=== PATIENT | female | born 1965 | race Caucasian/White ===

== ENCOUNTER → 2018-03-13 14:37 | Outpatient (CLI) | payer OTHER, SELFPAY | PROVIDERS: PCP Family Medicine; Visit Provider Nurse Practitioner Adult Health | DX: M85.852 Other specified disorders of bone density and structure, left thigh (principal); S22.39XA Fracture of one rib, unspecified side, initial encounter for closed fracture; Z78.0 Asymptomatic menopausal state; Z82.62 Family history of osteoporosis; Z87.891 Personal history of nicotine dependence | CPT/HCPCS: 77080 ==

== ENCOUNTER → 2018-08-14 13:43 | Outpatient (CLI) | payer OTHER, SELFPAY ==
--- NOTE | 2018-08-14 | DI.US.S_ITS ---
PROCEDURE: US EXTREMITY NONVASC LOWER RT INDICATIONS: RIGHT THIGH MASS LEFT FOREARM MASS TECHNIQUE: Real-time scanning was performed of the right anterior thigh., with image documentation. COMPARISON: [facility], , US EXTREMITY NONVASC UPPER LT, 08/14/2018, 14:08. FINDINGS: There are 3, mildly hyperechoic soft tissue masses corresponding to the palpable abnormalities with the largest measuring up to 2.6 cm. IMPRESSION: Soft tissue masses suspicious for lipomas; however differential would include other benign and malignant etiologies. If indicated soft tissue MRI could be performed. Dictated by: Dmitriy MOORE Interpreted: Naya Bedoya MD on 08/14/2018 at 14:39 Approved by: Naya Bedoya M.D. on 08/14/2018 at 16:08
--- NOTE | 2018-08-14 | DI.US.S_ITS ---
PROCEDURE: US EXTREMITY NONVASC UPPER LT INDICATIONS: RIGHT THIGH MASS LEFT FOREARM MASS TECHNIQUE: Real-time scanning was performed of the left lower arm anteriorly, with image documentation. COMPARISON: None. FINDINGS: Avascular, isoechoic soft tissue mass corresponding to the palpable abnormality measuring 1.0 0.4 x 1.5 cm the IMPRESSION: Probable soft tissue lipoma; however differential would also include other benign and malignant etiologies. If indicated soft tissue MRI could be performed. Dictated by: Dmitriy MOORE Interpreted: Naya Bedoya MD on 08/14/2018 at 14:42 Approved by: Naya Bedoya M.D. on 08/14/2018 at 16:09
== END ==
PROVIDERS: PCP Nurse Practitioner Adult Health; Visit Provider Nurse Practitioner Adult Health
DX: R22.41 Localized swelling, mass and lump, right lower limb (principal); R22.32 Localized swelling, mass and lump, left upper limb
CPT/HCPCS: 76882

== ENCOUNTER → 2019-03-12 07:42 | Outpatient (CLI) | payer OTHER, SELFPAY ==
--- NOTE | 2019-03-12 | DI.MG.S_ITS ---
BILATERAL DIGITAL SCREENING MAMMOGRAM 3D/2D WITH CAD WITH AUGMENTATION: 03/12/2019 CLINICAL: Routine screening. Comparison is made to exam dated: 02/21/2017 [facility]. There are scattered fibroglandular elements in both breasts. Current study was also evaluated with a Computer Aided Detection (CAD) system. Bilateral breast implants are stable. No significant masses, calcifications, or other findings are seen in either breast. There has been no significant interval change. IMPRESSION: NEGATIVE There is no mammographic evidence of malignancy. A 1 year screening mammogram is recommended. This exam was interpreted at Station ID: [id number]. NOTE: For mammograms, a report in lay terms will be sent to the patient. Approximately 15% of breast malignancies will not be visualized mammographically. In the management of a palpable breast mass, a negative mammogram must not discourage biopsy of a clinically suspicious lesion. Electronically Signed By: Vianey burroughs/enmanuel:03/12/2019 08:38:37 letter sent: Normal Exam ACR BI-RADS Category 1: Negative [id number]
== END ==
PROVIDERS: PCP Nurse Practitioner Adult Health; Visit Provider Nurse Practitioner Family
DX: Z12.31 Encounter for screening mammogram for malignant neoplasm of breast (principal)
CPT/HCPCS: 77063; 77067

== ENCOUNTER 2020-02-14 11:08 | Emergency (ER) | payer OTHER, SELFPAY ==
[2020-02-14 11:16] VITALS: BP 156/83; PULSE 86; RESP 14; TEMP 36.7; O2SAT 100; BMI 21.2
[2020-02-14 11:40] LABS: Appearance Urine UA SL CLOUDY; Bilirubin Urine UA NEGATIVE (NEGATIVE); Color Urine UA RED; Glucose Urine UA NEGATIVE (Negative); Ketones Urine UA NEGATIVE (NEGATIVE); Leukocyte Esterase Urine UA 3+ (NEGATIVE); Nitrite Urine UA NEGATIVE (Negative); Occult Blood Urine UA 3+ (Negative); Protein Urine UA 2+ (Negative); Urobilinogen Urine UA 0.2 E.U./dL (0.2)
--- NOTE | 2020-02-14 11:41 | ED_ITS ---
HPI - General Adult General Chief complaint: Urogenital-Female Stated complaint: UTI,peeing blood Time Seen by Provider: 02/14/20 11:22 Source: patient Mode of arrival: Ambulatory Limitations: no limitations History of Present Illness HPI narrative: Patient is a 54-year-old female with a history of multiple urinary tract infections. She states she does not remember when the last time she had 1 but she thinks it was when the past year. Has never been seen here in this emergency department for them. States yesterday started having symptoms consistent with her urinary tract infection. Burning with urination. She also noticed blood in the urine today. No back pain. No fevers. No nausea vomiting. She states that pretty in works very well for her along with antibiotics. She has not tried anything for the symptoms prior to arrival. Related Data Previous Rx's Medication Instructions Recorded ibuprofen 800 mg PO TIDP PRN #90 tab 02/27/16 desonide [DesOwen] 1 marek TOPICAL QHS #15 gm 04/14/17 amitriptyline 10 mg tablet 20 mg PO HS #180 tab 08/22/17 citalopram 20 mg tablet 20 mg PO QDAY #90 tab 08/22/17 diph,pertuss(acel),tet vac(PF) 0.5 ml IM ONCE #0.5 ml 08/22/17 temazepam 15 mg capsule 15 mg PO HS #90 cap 12/05/17 [BIEST 3:1] See Rx Instructions TOPICAL QDAY 01/02/18 #60 [TESTERONE 0.1% VBASE] See Rx Instructions TOPICAL QDAY 01/02/18 #30 ml cephalexin [Keflex] 500 mg PO BID 5 Days #10 cap 02/14/20 phenazopyridine [Pyridium] 100 mg PO TID PRN #6 tab 02/14/20 Allergies Allergy/AdvReac Type Severity Reaction Status Date / Time nickel [NICKEL] Allergy Intermediate AN OPEN Verified 02/14/20 11:16 SORE THAT WAS VERY ITCHY sulfamethoxazole Allergy Intermediate LIGHTHEADED Verified 02/14/20 11:16 [From ] AND HIVES trimethoprim [From ] Allergy Intermediate LIGHTHEADED Verified 02/14/20 11:16 AND HIVES Review of Systems Constitutional Constitutional: Denies fever(s) and Denies headache(s) ENT Ears, Nose, Mouth, and Throat: Denies headache(s) Cardiovascular Cardiovascular: Denies chest pain and Denies dyspnea Respiratory Respiratory: Denies dyspnea Gastrointestinal Gastrointestinal: Denies abdominal pain, Denies nausea and Denies vomiting Genitourinary Genitourinary: Reports dysuria, Denies flank pain and Reports urinary urgency Genitourinary: Reports dysuria, Denies flank pain, Reports urinary urgency and Denies vaginal discharge Comments: Blood with urination Musculoskeletal Musculoskeletal: Denies back pain Integumentary/Breasts Skin/Breast: Denies rash Neurologic Neurologic: Denies behavioral changes and Denies headache(s) Psychiatric Psychiatric: Denies behavioral changes Hematologic/Lymphatic Hematologic/Lymphatic: Denies easy bleeding and Denies easy bruising Patient History Medical History Anxiety (1993) Chickenpox (1967) Fibroids (2014) Mumps (1970) Ovarian cyst (2004) Painful menstrual periods (1975) Rosacea (1979) Scoliosis (1962) Shoulder pain (~01/2016) Surgical History History of breast augmentation History of tonsillectomy Status post hernia repair Status post ovarian cystectomy Family History (Updated 03/29/15 @ 00:00 by Julia Rick PA-C) Father Age: 82 Coronary artery disease involving [place] coronary artery of [place] heart, angina presence unspecified History of hepatitis C Grandmother Osteoporosis Essential hypertension Mother Age: 81 Osteoporosis Essential hypertension Sister Age: 54 Endometriosis Social History Smoking Status: Former smoker alcohol intake: never substance use type: does not use Smoking Status: Former smoker Exam Initial Vital Signs Initial Vital Signs: Vital Signs Temperature 98.1 F 02/14/20 11:16 Pulse Rate 86 02/14/20 11:16 Respiratory Rate 14 02/14/20 11:16 Blood Pressure 156/83 H 02/14/20 11:16 Pulse Oximetry 100 02/14/20 11:16 Const General: cooperative and comfortable Limitations: mental status not altered HENMT Head: normal to inspection and normocephalic Back/Spine/Pelvis Back: No CVA tenderness Skin Lesions: no lesions Rashes: no rashes Neuro General: patient alert, patient awake and patient oriented x3 Extrem General: normal to inspection and capillary refill normal Psych Appearance: grossly normal and well kempt Course Orders Ordered: ED Orders 02/14/20 11:15 Urinalysis and Microscopic Stat Discontinued Medications Cephalexin HCl (Cephalexin 250 Mg Capsule) 500 mg PO NOW ONE Stop: 02/14/20 11:43 Phenazopyridine HCl (Phenazopyridine 100 Mg Tablet) 100 mg PO NOW ONE Stop: 02/14/20 11:43 Vital Signs Vital signs: Vital Signs - 8 hr 02/14/20 11:16 Temperature 98.1 F Pulse Rate 86 Respiratory Rate 14 Blood Pressure 156/83 H Pulse Oximetry 100 Medical Decision Making Lab Data Lab results reviewed: Yes I reviewed the patient's lab results. Labs: Lab Results 02/14/20 Range/Units 11:15 Urine Color Red Urine Appearance Sl cloudy Urine pH 7.0 (4.5-8.0) Ur Specific Jen[place] 1.010 (1.000-1.035) Urine Protein 2+ H (Negative) Urine Glucose (UA) Negative (Negative) g/dL Urine Ketones Negative (NEGATIVE) Urine Occult Blood 3+ H (Negative) Urine Nitrate Negative (Negative) Urine Bilirubin Negative (NEGATIVE) Urine Urobilinogen 0.2 (0.2) E.U./dL Ur Leukocyte Esterase 3+ H (NEGATIVE) MDM Narrative Medical decision making narrative: Patient's history and physical urinalysis today is consistent with urinary tract infection. She was given a 1st dose of Pyridium and a dose of Keflex here in the emergency department and a prescri ption was electronically transmitted to [facility] for the remainder of the course of this. She has no findings consistent with pyelonephritis. The urine culture was pending at the time of discharge and she was instructed we will contact her for need to change any antibiotics. She was given return precautions and follow-up instructions. She expressed understanding and agreement plan. Discharge Plan Departure Patient Disposition: Home Clinical Impression: Urinary tract infection Qualifiers: Urinary tract infection type: acute cystitis Hematuria presence: with hematuria Qualified Code(s): N30.01 - Acute cystitis with hematuria Hematuria Qualifiers: Hematuria type: gross Qualified Code(s): R31.0 - Gross hematuria Instructions: DI for Urinary Tract Infection (UTI) Activity Restrictions/Additional Instructions: A urine culture was pending at the time of your discharge. We will contact you if we need to change any antibiotics. You were given your 1st dose of antibiotics here in the emergency department. Your 2nd dose will be this evening. [facility] Return to the emergency department for any new or worsening symptoms Prescriptions: New cephalexin [Keflex] 500 mg capsule 500 mg PO BID 5 Days Qty: 10 RF: 0 phenazopyridine [Pyridium] 100 mg tablet 100 mg PO TID PRN (Reason: pain) Qty: 6 RF: 0 No Action diph,pertuss(acel),tet vac(PF) [Adacel(Tdap Adolesn/Adult)(PF)] 2 Lf-(2.5-5-3-5 mcg)-5Lf/0.5 mL suspension 0.5 ml IM ONCE Qty: 0.5 RF: 0 amitriptyline 10 mg tablet 20 mg PO HS Qty: 180 RF: 0 citalopram 20 mg tablet 20 mg PO QDAY Qty: 90 RF: 1 ibuprofen 800 MG tablet 800 mg PO TIDP PRNQty: 90 RF: 2 desonide [DesOwen] 0.05 % cream 1 marek Topical QHS Qty: 15 RF: 2 temazepam 15 mg capsule 15 mg PO HS Qty: 90 RF: 0 [TESTERONE 0.1% VBASE] See Rx Instructions Topical QDAY Qty: 30 RF: 6 [BIEST 3:1] See Rx Instructions Topical QDAY Qty: 60 RF: 1
[2020-02-14 11:58] LABS: RBC Urine 5-10/HPF (0-5/HPF); Squamous Epithelial Cell Urine None Seen (0-5/HPF); WBC Urine 10-30/HPF (0-5/HPF)
[2020-02-14 11:59] LABS: Bacteria Urine Moderate (10-30); Culture Indicated Urine Specimen Cultured
[2020-02-14 12:00] VITALS: BP 141/78; PULSE 78; RESP 16; O2SAT 100
[2020-02-14] MEDS: cephALEXin 250 MG CAPSULE 500 MG PO (12:03)
[2020-02-14] MEDS: PHENAZOPYRIDINE 100 MG TABLET PO (12:03)
== END 2020-02-14 12:15 | disposition home or self-care (01) ==
PROVIDERS: Emergency Provider Emergency Medicine
DX: N30.01 Acute cystitis with hematuria (principal); R30.0 Dysuria
CPT/HCPCS: 81001; 87077; 87086; 87186; 99281; 99283

== ENCOUNTER → 2021-07-16 11:20 | Outpatient (CLI) | payer OTHER, SELFPAY ==
--- NOTE | 2021-07-16 11:25 | DI.MG.S_ITS ---
BILATERAL DIGITAL SCREENING MAMMOGRAM 3D/2D WITH CAD WITH AUGMENTATION: 07/16/2021 CLINICAL: Routine screening. Comparison is made to exams dated: 02/21/2017 mammogram, 03/12/2019 mammogram - [facility], and 06/01/2010 mammogram - [facility]. There are scattered fibroglandular elements in both breasts. Current study was also evaluated with a Computer Aided Detection (CAD) system. Bilateral breast implants are stable. No significant masses, calcifications, or other findings are seen in either breast. There has been no significant interval change. IMPRESSION: NEGATIVE There is no mammographic evidence of malignancy. A 1 year screening mammogram is recommended. This exam was interpreted at Station ID: [id number]. NOTE: For mammograms, a report in lay terms will be sent to the patient. Approximately 15% of breast malignancies will not be visualized mammographically. In the management of a palpable breast mass, a negative mammogram must not discourage biopsy of a clinically suspicious lesion. Electronically Signed By: Arron soares/enmanuel:07/16/2021 12:37:34 letter sent: Normal Exam ACR BI-RADS Category 1: Negative [id number]
== END ==
PROVIDERS: PCP Nurse Practitioner Family; Referring Provider Nurse Practitioner Family; Visit Provider Nurse Practitioner Family
DX: Z12.31 Encounter for screening mammogram for malignant neoplasm of breast (principal)
CPT/HCPCS: 77063; 77067

== ENCOUNTER → 2023-02-11 14:18 | Outpatient (CLI) | payer OTHER, SELFPAY ==
--- NOTE | 2023-02-11 | DI.RAD.S_ITS ---
Bone Density Report Name: DIALLO MYERS Age: 57 Sex: Female Ethnicity: White Date of : 1965 Indication: osteopenia; monitoring treatment; Referring Provider: DIALLO STANLEY Study: Bone densitometry was performed. Exam Date: February 11, 2023 Accession number: [id number] Bone Density: Region BMD T-score Z-score Classification AP Spine(L1-L4) 0.834 -1.9 -0.5 Osteopenia Femoral Neck (Left) 0.595 -2.3 -1.0 Osteopenia Total Hip (Left) 0.771 -1.4 -0.5 Osteopenia Femoral Neck (Right) 0.597 -2.3 -1.0 Osteopenia Total Hip (Right) 0.821 -1.0 -0.1 Normal Total Hip Mean 0.796 -1.2 -0.3 Osteopenia World Health Organization criteria for BMD impression classify patients as: Normal (T-score at or above -1.0), Osteopenia (T-score between -1.0 and -2.5), or Osteoporosis (T-score at or below -2.5). 10-year Fracture Risk: FRAX not reported because: Treated for osteoporosis Previous Exams: -- Region Exam Age BMD T-score BMD Change BMD Change Date g/cm2 vs Baseline vs Previous -- AP Spine (L1-L4) 02/11/2023 57 0.834 -1.9 -0.029 (-3.3%)# 0.004 (0.5%)# 03/13/2018 53 0.829 -2.0 -0.033 (-3.8%)* -0.033 (-3.8%)* 04/25/2015 50 0.862 -1.7 Total Hip(Left) 02/11/2023 57 0.771 -1.4 -0.014 (-1.7%)# -0.004 (-0.5%)# 03/13/2018 53 0.775 -1.4 -0.010 (-1.3%) -0.010 (-1.3%) 04/25/2015 50 0.785 -1.3 Total Hip(Right) 02/11/2023 57 0.821 -1.0 -0.014 (-1.7%)# -0.009 (-1.1%)# 03/13/2018 53 0.829 -0.9 -0.006 (-0.7%) -0.006 (-0.7%) 04/25/2015 50 0.835 -0.9 -- *Denotes significance at 95% confidence level, LSC for AP Spine = 0.022 g/cm2, LSC for Total Hip = 0.027 g/cm2 # Denotes dissimilar scan types or analysis methods Impression: The patient has low bone mass, based on the Left Femoral Neck T-score. No significant bone loss was observed. Discussion: PATIENT UNDER TREATMENT WITH NO SIGNIFICANT BMD LOSS SINCE LAST EXAM. In an untreated patient, BMD typically declines with age. A lack of decline or gain is usually a sign that treatment is efficacious and fracture risk is reduced. It is important to ask patients whether they are taking their medications and to encourage continued and appropriate compliance with their osteoporosis therapies to reduce fracture risk. It is also important to review their risk factors and encourage appropriate calcium and vitamin D intakes, exercise, fall prevention and other lifestyle measures. Follow-Up: Consider a repeat BMD and Vertebral Fracture Assessment (VFA) exam in 2 years or sooner if medically necessary, to reassess this patient's status. Reported by: DENISHA DAWSON M.D. on 02/11/2023 3:16:00 PM.
== END ==
PROVIDERS: PCP Nurse Practitioner Family; Referring Provider Nurse Practitioner Family; Visit Provider Nurse Practitioner Family
DX: Z13.820 Encounter for screening for osteoporosis (principal); M85.89 Other specified disorders of bone density and structure, multiple sites
CPT/HCPCS: 77080

== ENCOUNTER → 2023-06-14 07:31 | Outpatient (CLI) | payer OTHER, SELFPAY ==
[2023-06-14 09:36] LABS: Add Manual Diff / Slide Review NO; Basophils Absolute Auto 0 /uL (0-100); Basophils Percent Auto 0.4 % (0-2); Eosinophils Absolute Auto 100 /uL (0-450); Eosinophils Percent Auto 0.7 % (2-4); Hematocrit 40.7 % (36-46); Hemoglobin 13.7 g/dL (12.0-16.0); Lymphocytes Absolute Auto 3000 /uL (1100-4500); Lymphocytes Percent Auto 36.1 % (25-40); Mean Corpuscular HGB Conc 33.7 % (30-36); Mean Corpuscular Hemoglobin 30.1 PG (26-34); Mean Corpuscular Volume 89.4 fL (80-100); Monocytes Absolute Auto 400 /uL (0-900); Monocytes Percent Auto 5.4 % (3-14); Neutrophils Absolute Auto 4700 /uL (1500-7000); Neutrophils Percent Auto 57.4 % (50-75); Platelet Count 278 X10^3/uL (150-400); Red Blood Cell Count 4.56 X10^6/uL (4.0-5.2); Red Cell Distribution Width 12.5 % (11.6-14.8); White Blood Cell Count 8.3 X10^3/uL (4.5-11.0)
[2023-06-14 09:59] LABS: Alanine Aminotransferase 19 IU/L (<35); Albumin 4.4 g/dL (3.5-5.0); Albumin Globulin Ratio 1.7 (1.0-2.8); Alkaline Phosphatase 45 U/L (38-126); Aspartate Aminotransferase 26 IU/L (14-36); BUN Creatinine Ratio 17.7 (6-22); Bilirubin Total 0.5 mg/dL (0.2-1.3); Blood Urea Nitrogen 11 mg/dL (7-17); Calcium 9.3 mg/dL (8.4-10.2); Carbon Dioxide 29 mmol/L (22-32); Chloride 103 mmol/L (98-107); Cholesterol 257 mg/dL (140-199); Estimated Glomerular Filt Rate > 60 mL/min (>60); Globulin 2.6 g/dL (1.7-4.1); Glucose 90 mg/dL (80-110); HDL Cholesterol 62 mg/dL (40-60); HEMOLYSIS < 15 (0-50); LDL Cholesterol Calculated 163 mg/dL (<100); Sodium 137 mmol/L (137-145); Triglycerides 159 mg/dL (35-150)
[2023-06-14 10:09] LABS: Hemoglobin A1C% w Est Avg Glu 5.6 % (4.0-6.0)
== END ==
LOC: LAB 07:34
PROVIDERS: PCP Family Medicine; Referring Provider Family Medicine; Visit Provider Family Medicine
DX: M85.80 Other specified disorders of bone density and structure, unspecified site (principal); G47.00 Insomnia, unspecified; E78.00 Pure hypercholesterolemia, unspecified; Z76.89 Persons encountering health services in other specified circumstances; R73.03 Prediabetes
CPT/HCPCS: 36415; 80053; 80061; 83036; 85025

== ENCOUNTER → 2023-06-20 07:32 | Outpatient (CLI) | payer OTHER, SELFPAY ==
--- NOTE | 2023-06-20 07:33 | DI.US.S_ITS ---
PROCEDURE: US ABDOMEN COMPLETE INDICATIONS: ABDOMINAL PAIN X 4 MONTHS TECHNIQUE: Real-time scanning was performed of the abdominal and retroperitoneal organs, with image documentation. COMPARISON: [facility], US, ABDOMEN COMPLETE, 12/10/2016, 17:21. FINDINGS: Liver: Measures 11.5 cm. Echogenicity is felt to be within normal limits. The right peripheral lobe of the liver there is an echogenic lesion measuring 2.4 cm. Gallbladder: Nondilated. No stones or sludge. Normal gallbladder wall thickness. No pericholecystic fluid. Negative sonographic Turner's sign. Biliary ducts: Intrahepatic bile ducts are non-dilated. Extrahepatic bile duct caliber measures 3 mm. Normal is 6-7 mm or less in diameter, or 10 mm or less post-cholecystectomy. Pancreas: Visualized portions of the pancreas are sonographically normal. Spleen: Spleen is normal in size and homogeneous in echotexture. Measures 8 cm in length. Kidneys: Kidneys are normal in size and echotexture. Right kidney measures 10.3 cm long; left kidney measures 11.2 cm long. No hydronephrosis. No solid masses. Left kidney is suboptimally visualized. Aorta: Visualized aorta is normal in caliber at less than 3 cm. Plaque is seen. Iliacs: Proximal common iliac arteries are normal in caliber at less than 2.5 cm. IVC: Intrahepatic inferior vena cava is patent. Miscellaneous: No free abdominal fluid. IMPRESSION: 1. No acute cholecystitis. No gallstones. 2. Echogenic lesion in the right lobe of the liver measuring 2.4 cm. This could represent a hemangioma. Recommend further characterization with multiphase liver CT or MRI. 3. No hydronephrosis. Dictated by: Pedro Luis Das M.D. on 06/20/2023 at 12:29 Approved by: Pedro Luis Das M.D. on 06/20/2023 at 12:35
== END ==
PROVIDERS: PCP Family Medicine; Referring Provider Family Medicine; Visit Provider Family Medicine
DX: K76.9 Liver disease, unspecified (principal); M62.00 Separation of muscle (nontraumatic), unspecified site; R10.9 Unspecified abdominal pain
CPT/HCPCS: 76700

== ENCOUNTER → 2023-06-28 08:53 | Outpatient (CLI) | payer OTHER, SELFPAY ==
--- NOTE | 2023-06-28 08:54 | DI.CT.S_ITS ---
PROCEDURE: CT ABDOMEN LIVER PROTOCOL INDICATIONS: Findings on 06/20/23 abdominal US TECHNIQUE: 4 phase scanning was performed. Non-contrast 5 mm axial sections acquired from the diaphragm to the iliac crests. Following the administration of intravenous contrast, 5 mm thick arterial-phase, portal venous-phase, and 5-minute delayed phase images were acquired through the liver. 5 mm thick coronal and sagittal reformats were performed. For radiation dose reduction, the following was used: automated exposure control, adjustment of mA and/or kV according to patient size. COMPARISON: None. FINDINGS: Image quality: Excellent. Lower chest: Bilateral breast implants. No suspicious pulmonary nodule or consolidation. ABDOMEN: Liver: Hepatic dome demonstrates a 2.1 x 2 cm lesion in the hepatic dome with peripheral nodular and discontinuous enhancement with progressive centripetal fill-in (07/31, 12/01, 09/14). Patent portal vein. Patent hepatic veins. Gallbladder: No radiopaque gallstones or wall thickening. Biliary ducts: No biliary dilation. Pancreas: No ductal dilation. Spleen: Size is within normal limits. Adrenal Glands: No adrenal nodules. Kidneys and Ureters: No hydronephrosis. No solid mass. No complex renal cystic lesion which requires follow up. Stomach and Bowel: No hiatal hernia. Stomach is decompressed and appears grossly normal. Visualized small and large bowel is normal in caliber, without obstruction. Above average colonic stool burden. Peritoneum: No abnormal intraperitoneal fluid. No free air. Ventral Wall: No hernia. Abdominal Nodes: No retroperitoneal or mesenteric adenopathy by size criteria. Vessels: Aorta and inferior vena cava are normal in size. Bones: No aggressive osseous abnormality. No acute fracture. IMPRESSION: 1. Hepatic dome demonstrates a 2.1 x 2 cm lesion compatible with a benign hemangioma. No suspicious hepatic lesion. 2. Above average colonic stool burden which may correlate with constipation. Dictated by: Astrid Orozco M.D. on 06/28/2023 at 15:51 Approved by: Astrid Orozco M.D. on 06/28/2023 at 16:03
== END ==
PROVIDERS: PCP Family Medicine; Referring Provider Family Medicine; Visit Provider Family Medicine
DX: K76.9 Liver disease, unspecified (principal); R93.2 Abnormal findings on diagnostic imaging of liver and biliary tract
CPT/HCPCS: 74170; Q9967

== ENCOUNTER → 2024-05-05 09:25 | Outpatient (CLI) | payer OTHER, SELFPAY ==
--- NOTE | 2024-05-05 09:26 | DI.RAD.S_ITS ---
PROCEDURE: XR DEXA AXIAL SKELETON INDICATIONS: OSTEOPOROSIS SCREENING COMPARISON: [facility], , XR DEXA AXIAL SKELETON, 02/11/2023, 15:10. FINDINGS: Lumbar Spine: Bone mineral density is 0.833 g/cm2, T score -1.9, osteopenia. Left Femoral Neck: Bone mineral density is 0.588 g/cm2, T score -2.4, osteopenia. Left Hip: Bone mineral density is 0.768 g/cm2, T score -1.4, osteopenia. Fracture Risk Calculation (when applicable): 10-year fracture risk of a major osteoporotic fracture 11% percent and of a hip fracture 1.8% percent. (T score greater or equal to -1.0 to: NORMAL) (T score from -1.1 to -2.4: OSTEOPENIA) (T score less than or equal to -2.5: OSTEOPOROSIS) IMPRESSION: Osteopenia. Bone marrow density is without significant change compared to February 11, 2023. Follow-up guidelines as follows: Osteoporosis: Consider a repeat DEXA and Vertebral Fracture Assessment (VFA) exam in 2 years or sooner if medically necessary, to reassess this patient's status. Osteopenia: Consider a repeat DEXA in 2-3 years to reassess this patient's status, or if there is a new clinical indication. Normal: Consider a repeat DEXA in 5 years or sooner, or if there is a new clinical indication. All treatment decisions require clinical judgment and consideration of individual patient factors, including patient preferences, comorbidities, previous drug use, risk factors not captured in the FRAX model (e.g., frailty, falls, vitamin D deficiency, increased bone turnover, interval significant decline in bone density ) and possible under- or over-estimation of fracture risk by FRAX. In addition, the NOF Guide recommends that FDA-approved medical therapies be considered in postmenopausal women and men age >= 50 years with a: * Hip or vertebral (clinical or morphometric) fracture * T-score of <=-2.5 at the spine or hip * Ten-year fracture probability by FRAX of >= 3% for hip fracture or >=20% for major osteoporotic fracture. Dictated by: Zakia Baker MD, PhD on 05/05/2024 at 11:09 Approved by: Zakia Baker MD, PhD on 05/05/2024 at 11:10
== END ==
PROVIDERS: PCP Denturist; Referring Provider Denturist; Visit Provider Denturist
DX: Z01.89 Encounter for other specified special examinations (principal); M85.89 Other specified disorders of bone density and structure, multiple sites
CPT/HCPCS: 77080

== ENCOUNTER → 2024-11-29 11:20 | Outpatient (CLI) | payer OTHER, SELFPAY ==
--- NOTE | 2024-11-29 11:22 | DI.US.S_ITS ---
PROCEDURE: US RENAL COMPLETE INDICATIONS: Leg pain; rt flank pain TECHNIQUE: Real-time scanning was performed of the kidneys and bladder, with image documentation. COMPARISON: [facility], CT, CT ABDOMEN LIVER PROTOCOL, 06/28/2023, 9:04. [facility], US, US ABDOMEN COMPLETE, 06/20/2023, 8:32. FINDINGS: Kidneys: Kidneys are normal in size. Right kidney measures 11.1 cm long; left kidney measures 11.1 cm long. Right renal cortical thickness is 1.4 cm; left renal cortical thickness is 1.8 cm. Renal cortical echotexture is normal. No hydronephrosis or nephrolithiasis. No suspicious solid mass lesions. Bladder: Pre-void images demonstrate no intraluminal masses or stones. On pre- void images, both ureteral jets are noted with color Doppler interrogation. (Of note, ureteral jets may not be detectable in up to 25% of cases due to insufficient differences in specific gravity between ureteral and bladder urine). Miscellaneous: No free pelvic fluid. IMPRESSION: Normal appearing kidneys, without hydronephrosis. Dictated by: Bahman Hook M.D. on 11/29/2024 at 12:26 Approved by: Bahman Hook M.D. on 11/29/2024 at 12:28
== END ==
PROVIDERS: PCP Denturist; Referring Provider Nurse Practitioner Family; Visit Provider Nurse Practitioner Family
DX: N28.89 Other specified disorders of kidney and ureter (principal)
CPT/HCPCS: 76770